=== PATIENT | male | born 1990 | race Caucasian/White ===

== ENCOUNTER 2018-05-01 12:37 | Emergency (ER) | payer OTHER ==
[2018-05-01 12:55] VITALS: BP 133/81; PULSE 85; RESP 20; TEMP 98.1
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
== END 2018-05-01 15:06 | disposition home or self-care (01) ==
LOC: EC 12:37
DX: S93.402A Sprain of unspecified ligament of left ankle, initial encounter (principal); F17.200 Nicotine dependence, unspecified, uncomplicated; X50.1XXA Overexertion from prolonged static or awkward postures, initial encounter; Y92.009 Unspecified place in unspecified non-institutional (private) residence as the place of occurrence of the external cause; Y99.0 Civilian activity done for income or pay
CPT/HCPCS: 99283

== ENCOUNTER → 2018-05-25 | Outpatient (CLI) | payer OTHER ==
--- NOTE | 2018-05-25 18:49 | XR ---
PROCEDURE: XR ankle complete LT - 3V DATE AND TIME: 05/25/2018 6:12 PM CLINICAL INDICATION: [facility]; M25.572 Pain in left ankle TECHNIQUE: Department protocol COMPARISON: 05/01/2018 FINDINGS: There is no fracture or malalignment. The mortise is intact. The soft tissues are unremarka ble. IMPRESSION: NO ACUTE PROCESS.
== END ==
LOC: RADXRMAIN 17:42
PROVIDERS: ATTEND Emergency Medicine
DX: M25.572 Pain in left ankle and joints of left foot (principal)

== ENCOUNTER → 2018-05-31 | Outpatient (CLI) | payer OTHER ==
--- NOTE | 2018-05-31 17:05 | CT ---
CT scan left ankle. History pain. Comparison ankle x-ray 05/25/2018. Findings Ankle mortise is anatomic. I see no fracture nor dislocation. Joint spaces are fairly normal. There a re no pathologic soft tissue calcifications at the ankle joint. There is a plantar calcaneal spur. There is a oval-shaped 4 x 2 cm area of soft tissue density and mild punctate calcification involving the distal tibial medullary diaphysis. There is no cortical thinning. There is no expansion. There i s a short zone of transition. I see no fracture line. There is no soft tissue mass around the distal tibia. IMPRESSION: Intramedullary mixed density mass in the distal tibial diaphysis. Radiographic features are benign. T his could be hemangioma or osteochondroma or fibrous dysplasia. Bone scan might be helpful to determi ne if this is metabolically active.
== END ==
LOC: RADCTMAIN 16:15
PROVIDERS: ATTEND Emergency Medicine
DX: M89.8X6 Other specified disorders of bone, lower leg (principal)

== ENCOUNTER → 2018-06-12 | Outpatient (CLI) | payer OTHER ==
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
== END | disposition home or self-care (01) ==
LOC: RADMRIMAIN 21:39
PROVIDERS: ATTEND Emergency Medicine
DX: S93.492D Sprain of other ligament of left ankle, subsequent encounter (principal)